=== PATIENT | female | born 1960 | race Caucasian/White ===

== ENCOUNTER 2018-04-23 06:06 | Day surgery (SDC) | payer MEDICAID, SELFPAY ==
[2018-04-23 06:30] VITALS: BP 125/84; PULSE 68; RESP 16; TEMP 36.9; O2SAT 97
[2018-04-23] MEDS: Lactated Ringers 1,000 ML 80 ML IV (06:51)
--- NOTE | 2018-04-23 07:03 | PDOC.DSDIS_ITS ---
Discharge Plan Discharge Details Reason For Visit: HX OF POLYPS Attending Provider: Tianna Yuan Primary Care Provider: Rosa Friedman Home Meds and New Rx's Prescriptions: No Action naproxen sodium [Aleve] 220 MG tablet 440 mg PO Q12H PRN RF: 0 cetirizine [Zyrtec] 10 MG tablet 10 mg PO DAILY RF: 0 compression socks, medium [Futuro Restoring Medium] 1 EACH misc 2 ea Miscellaneous DAILY Qty: 2 RF: 3 albuterol sulfate [ProAir HFA] 8.5 GM HFA aerosol inhaler 1 puff Inhalation q 4 hr prn Qty: 1 RF: 12 acetaminophen 500 MG tablet 1,000 PO TID PRNRF: 3 fluticasone [Flonase Allergy Relief] 9.9 ML spray,suspension 1 spray NS BID Qty: 1 RF: 0 bisacodyl [Bisa-Lax] 5 MG tablet,delayed release (DR/EC) 5 mg PO as directed Qty: 4 RF: 0 polyethylene glycol 3350 255 GM powder 255 gm PO as directed for colo Qty: 255 RF: 0 diazepam 10 MG tablet 10 mg PO ONCE Qty: 1 RF: 0 Discharge Instructions Instructions: Colonoscopy (DC) Additional Instructions: Findings: Follow up: Diet: New Medications: Please call if you develop: fevers >101.5 Nausea or Vomiting Abdominal pain that is not transient 1. Because there will be medication in your system for the next 24 hours, you may feel a little sleepy. Your coordination will be affected. Therefore: a. Do not drive or operate dangerous equipment for 24 hours. b. Do not drink alcohol beverages for 24 hours (not even beer). c. Plan to go home and rest for the day. 2. Generally there are no restrictions on your activity after a day or so has gone by, but you may feel a bit fatigued for a few days. 3 After you arrive home you may have a light meal and return to a normal diet as you can tolerate it without feeling sick to your stomach. 4. After surgery, you may feel pain or discomfort. This should be only transient , but if it persists please contact your doctor. 5. If there are any questions regarding the findings of your procedure, please feel free to contact your doctor. 6. If you are unable to contact your doctor with a problem, contact the [facility] at [phone]. 7. Continue all your regular medications unless directed otherwise. I understand the above instructions and have no questions. Signature of Patient or Responsible Adult Escort Date/Time Name of Responsible Adult Escort Signature of Nurse Date/Time Activity:: Activity as Tolerated Activity:: Activity as Tolerated Equipment/Supplies:: No Equipment Needed Diet:: As Tolerated
--- NOTE | 2018-04-23 07:50 | BOWEL_PTH ---
PATIENT: Natalie Hdz LOC: [facility] U#:[id number] AGE/SX: 57/F ROOM: RE04/23/[address]: Tianna Yuan MD : 1960 BED: DIS: 04/23/2018 SPEC #: [id number] RECD: 04/23/18 12:06 STATUS: JEANNE REKathryn #: [id number] MOISÉS: 04/23/18 07:[address]: Tianna Yuan DEPT: Surgical Specimen RECD BY: Lola Daley ENTERED: 04/23/18 12:07 SP TYPE: Bowel OTHR DR: Rosa Friedman APRN Tissues: 1 - BIOPSY BOWEL 2 - BIOPSY BOWEL Procedures: GROSS AND MICRO LEVEL 4 Comments: [id number]
--- NOTE | 2018-04-23 08:04 | PDOC.DSDIS_ITS ---
Discharge Plan Discharge Details Reason For Visit: HX OF POLYPS Attending Provider: Tianna Yuan Primary Care Provider: Rosa Friedman Home Meds and New Rx's Prescriptions: No Action naproxen sodium [Aleve] 220 MG tablet 440 mg PO Q12H PRN RF: 0 cetirizine [Zyrtec] 10 MG tablet 10 mg PO DAILY RF: 0 compression socks, medium [Futuro Restoring Medium] 1 EACH misc 2 ea Miscellaneous DAILY Qty: 2 RF: 3 albuterol sulfate [ProAir HFA] 8.5 GM HFA aerosol inhaler 1 puff Inhalation q 4 hr prn Qty: 1 RF: 12 acetaminophen 500 MG tablet 1,000 PO TID PRNRF: 3 fluticasone [Flonase Allergy Relief] 9.9 ML spray,suspension 1 spray NS BID Qty: 1 RF: 0 bisacodyl [Bisa-Lax] 5 MG tablet,delayed release (DR/EC) 5 mg PO as directed Qty: 4 RF: 0 polyethylene glycol 3350 255 GM powder 255 gm PO as directed for colo Qty: 255 RF: 0 diazepam 10 MG tablet 10 mg PO ONCE Qty: 1 RF: 0 Discharge Instructions Instructions: Colonoscopy (DC) Additional Instructions: Findings: 1. 2 polyps 2. mild diverticulosis Follow up: 3-5 years Diet: high fiber New Medications: none Please call if you develop: fevers >101.5 Nausea or Vomiting Abdominal pain that is not transient 1. Because there will be medication in your system for the next 24 hours, you may feel a little sleepy. Your coordination will be affected. Therefore: a. Do not drive or operate dangerous equipment for 24 hours. b. Do not drink alcohol beverages for 24 hours (not even beer). c. Plan to go home and rest for the day. 2. Generally there are no restrictions on your activity after a day or so has gone by, but you may feel a bit fatigued for a few days. 3 After you arrive home you may have a light meal and return to a normal diet as you can tolerate it without feeling sick to your stomach. 4. After surgery, you may feel pain or discomfort. This should be only transient , but if it persists please contact your doctor. 5. If there are any questions regarding the findings of your procedure, please feel free to contact your doctor. 6. If you are unable to contact your doctor with a problem, contact the [facility] at [phone]. 7. Continue all your regular medications unless directed otherwise. I understand the above instructions and have no questions. Signature of Patient or Responsible Adult Escort Date/Time Name of Responsible Adult Escort Signature of Nurse Date/Time Activity:: Activity as Tolerated Activity:: Activity as Tolerated Equipment/Supplies:: No Equipment Needed Diet:: As Tolerated
--- NOTE | 2018-04-23 08:04 | W.COLOREPORT ---
Date of service: 04/23/18 Time of Service: 08:00
[2018-04-23 08:30] VITALS: BP 134/49; PULSE 65; RESP 16; TEMP 36.2; O2SAT 97
--- NOTE | 2018-04-26 08:25 | W.COLOREPORT ---
Date of service: 04/23/18 Colonoscopy Report Date of procedure: 04/23/18 Pre-op diagnosis general: Hx of polyps Post-op diagnosis procedure note: other (mild diverticulosis and polyps) Procedure: Colonoscopy with polypectomy by cold forceps Surgeon: Tianna Yuan Anesthesia proc note operative: MAC (by Nader Forman CRNA) Estimated blood loss (mL): 3 Pathology: other (2 polyps) Complications: None Disposition: same day Indications: Ms. Hdz is a pleasant 57 year old female with a history of polyps. Her last colonoscopy was 5 years ago. Risks, benefits and complications have been reviewed. Complications include but are not limited to bleeding, pain, perforation, missed small lesion/polyp, sore throat, aspiration and adverse reaction to the medications. Questions were entertained and answered to their satisfaction and they wished to proceed. No guarantees were given or implied. Prep: Miralax Retraction Time: 20 minutes Findings: descending and rectal polyp Procedure Description: After informed consent was obtained patient was taken to the procedure room and placed in the left decubitous position. Monitors were applied and a timeout was done. The patient's name date of procedure type allergies to medications and metal in her body reviewed. The patient was then sedated and once sedated and comfortable a rectal exam was done. External exam was normal. Internal exam revealed normal sphincter tone and no palpable masses. The colonoscope was introduced and retroflexed. There were no internal hemorrhoids. The scope was straightened and advanced to the cecum without difficulty. The TI and the appendiceal orifice were identified. Prep was adequate. The scope was retracted over 20 minutes back to the rectum. 2 polyps were removed with cold forceps The patient tolerated the proceedure well. She was woken up and taken back to same day surgery in stable condition.
== END 2018-04-23 09:00 | disposition home or self-care (01) ==
LOC: SUR 06:08
PROVIDERS: PCP Nurse Practitioner; Visit Provider Surgery
PROC: 0DJD8ZZ Inspection of Lower Intestinal Tract, Via Natural or Artificial Opening Endoscopic (ICD-10-PCS; CPT 45378; principal; 2018-04-23 07:30)
DX: Z12.11 Encounter for screening for malignant neoplasm of colon (principal); Z86.010 Personal history of colon polyps; K57.30 Diverticulosis of large intestine without perforation or abscess without bleeding; K63.5 Polyp of colon; K62.1 Rectal polyp
CPT/HCPCS: 45380; 88305

== ENCOUNTER 2018-05-13 00:38 | Emergency (ER) | payer MEDICAID, SELFPAY ==
[2018-05-13 00:43] VITALS: BP 150/92; PULSE 81; RESP 16; TEMP 36.6; O2SAT 98
--- NOTE | 2018-05-13 01:24 | DI.RAD_ITS ---
SYMPTOMS/DIAGNOSIS: S/P FALL ONTO RT HAND AND WRIST, ? ACUTE FRACTURE RIGHT HAND: Three views. There is a nondisplaced intra-articular fracture of the medial aspect of the base of the proximal phalanx of the right little finger. No other fracture or dislocation is seen. No radiopaque foreign bodies are seen in the soft tissues. Mild degenerative changes are seen of the hand and wrist. IMPRESSION: Nondisplaced intra-articular fracture through the base of the proximal phalanx of the right little finger. RIGHT WRIST: Three views. No acute fracture or dislocation is seen. No radiopaque foreign bodies are seen in the soft tissues. IMPRESSION: No acute abnormality.
--- NOTE | 2018-05-13 01:26 | W.ED.GENAD ---
Discharge Plan Disposition Patient Disposition: HOME Condition: Stable Discharge Details Chief Complaint: Trauma Clinical Impression: Fracture of finger of right hand, Contusion of face, Abrasion of knee, bilateral Primary Care Provider: Rosa Friedman ED Provider: Michelle Alvarenga Home Meds and New Rx's Prescriptions: Continue naproxen sodium [Aleve] 220 MG tablet 440 mg PO Q12H PRN RF: 0 cetirizine [Zyrtec] 10 MG tablet 10 mg PO DAILY RF: 0 compression socks, medium [Futuro Restoring Medium] 1 EACH misc 2 ea Miscellaneous DAILY Qty: 2 RF: 3 albuterol sulfate [ProAir HFA] 8.5 GM HFA aerosol inhaler 1 puff Inhalation q 4 hr prn Qty: 1 RF: 12 acetaminophen 500 MG tablet 1,000 PO TID PRNRF: 3 fluticasone [Flonase Allergy Relief] 9.9 ML spray,suspension 1 spray NS BID Qty: 1 RF: 0 diazepam 10 MG tablet 10 mg PO ONCE Qty: 1 RF: 0 Discharge Instructions Instructions: Finger Fracture (ED), Head Injury (ED), Contusion in Adults (ED) Additional Instructions: Rest, ice, elevate right hand as much as possible. Alternate Tylenol and Motrin as needed and directed for pain. You should receive a call from the orthopedics regarding plan for follow-up. Return immediately to the emergency department with any worsening or new concerning symptoms. Stand Alone Forms: Work Release Referrals: Ozzie Raza MD [ [facility] STAFF PHYSICIAN] - ([phone]) Discharge Data Discharge Physician: Michelle Alvarenga Medical Decision Making 57yo F who presents with R hand and wrist pain, b/l knee abrasions, and head injury after mechanical fall from standing height. No LOC, vomiting, and denies headache. Small hematoma noted to right forehead but no periorbital edema or entrapment. Mainly c/o pain in R hand and wrist. No C/T/L spine tenderness. Abd soft, nontender. No pelvic instability. She has some mild tenderness to R lateral ribcage but has had rib fractures in past and states I did not break a rib and is declining cxr/rib xray at this time. I do not see any indication for CT head due to mechanism and lack of concerning associated symptoms and pt is agreeable and would rather not have CT head at this time. Will give dose motrin and send for R hand and wrist xrays. 0200 --x-rays note R 5th proximal phalanx fracture. Right wrist x-ray negative. Patient did have mild right snuffbox tenderness which has improved on reevaluation after motrin. With her fifth proximal phalanx fracture, patient would benefit from an ulnar splint more than a volar splint which would cover for a possible but unlikely scaphoid fracture. Will place patient on orthopedic list for follow-up and for repeat wrist x-rays to rule out scaphoid fracture when reevaluated if indicated. Patient offered narcotic pain medication for home but declines. HPI General Mode of arrival: ambulatory. Date/Time Provider Initiated Documentation: 05/13/18 00:39. Limitations to Documentation: no limitations. Information obtained by: patient. HPI Narrative: 57yo F who presents to the ED w/ a c/o PMH: Asthma, Hep C, Arachnoid brain tumor Surgical history: Endometrial ablation, D & C, Hysterectomy, Cardiac valve repair x 2, Craniotomy with brain tumor resection, Trigger finger repair Social history: Former tobacco smoker, Occasional ETOH, denies drugs Meds: Albuterol, Valium, Flonase, Valium Allergies: Codeine (nausea) Related Data Home Medications Medication Instructions Recorded Confirmed naproxen sodium [Aleve] 440 mg PO Q12H PRN tab-cap 09/18/16 05/13/18 cetirizine [Zyrtec] 10 mg PO DAILY tab-cap 10/23/16 05/13/18 albuterol sulfate [ProAir HFA] 1 puff INHALATION q 4 hr prn #1 05/02/17 05/13/18 inhaler compression socks, medium [Futuro #2 pa 05/02/17 Restoring Medium] acetaminophen 1,000 PO TID PRN tab 07/03/17 fluticasone [Flonase Allergy 1 spray NS BID #1 bottle 10/29/17 05/13/18 Relief] diazepam 10 mg PO ONCE #1 tab-cap 04/08/18 05/13/18 Previous Rx's Medication Instructions Recorded albuterol sulfate [ProAir HFA] 1 puff INHALATION q 4 hr prn #1 05/02/17 inhaler compression socks, medium [Futuro #2 pa 05/02/17 Restoring Medium] fluticasone [Flonase Allergy 1 spray NS BID #1 bottle 10/29/17 Relief] diazepam 10 mg PO ONCE #1 tab-cap 04/08/18 Allergies Allergy/AdvReac Type Severity Reaction Status Date / Time Bleach (Sodium Hypochlorite) Allergy Severe takes her Unverified 05/13/18 00:47 breath away, asthma attack latex Allergy Severe 2 degree Unverified 05/13/18 00:47 russo raspberry Allergy Severe hives Unverified 05/13/18 00:47 aluminum Allergy Unknown Facial Unverified 05/13/18 00:47 Swelling and Blisters lactose AdvReac Severe diarrhea,bl Unverified 05/13/18 00:47 oating,vomi ting codeine AdvReac Vomiting Unverified 05/13/18 00:47 General Stated Complaint: Trauma SHAR: 3 Review of Systems Review of Systems All systems reviewed & are unremarkable except as noted in HPI and below Constitutional Denies chills, Denies excessive sweating, Denies fatigue, Denies fever(s), Denies weakness and Denies weight loss Eyes Reports system reviewed and no additional complaints, except as docu and Denies blurry vision ENT Denies vertigo, Denies dizziness, Denies otalgia, Denies nasal congestion, Denies sore throat and Denies throat swelling Cardiovascular Denies chest pain, Denies syncope, Denies rapid heart rate and Denies dyspnea Respiratory Denies dyspnea Gastrointestinal Denies abdominal pain, Denies diarrhea and Denies vomiting Genitourinary Denies hematuria, Denies dysuria and Denies flank pain Musculoskeletal Denies back pain and Reports other (R hand and wrist injury) Integumentary/Breasts Denies lesions and Denies rash Neurologic Denies behavioral changes, Denies confusion, Denies vertigo, Denies dizziness, Denies syncope and Denies weakness Psychiatric Denies behavioral changes, Denies confusion and Denies depression Endocrine Denies excessive sweating and Denies fatigue Hematologic/Lymphatic Denies easy bruising and Denies lymphadenopathy Allergic/Immunologic Denies throat swelling PFSH Family History Father Heart disease Hyperlipidemia Myocardial infarction Brother Diabetes Grandmother Personal history of malignant neoplasm Maternal Uncle Personal history of malignant neoplasm Maternal Aunt Cerebrovascular accident Medical History Normal colonoscopy (Acute ~03/2018) Arachnoid cyst Asthma Hepatitis C Valvular heart disease Social History Smoking/Tobacco Use Status: Former Tobacco Use Surgical History Colonoscopy - MAC D&C with Hysteroscopy (~1995) Endometrial Ablation Trigger Finger release cardiac valve repair x2 rgt retrosigmoid suboccipital craniotomy resection (03/20/17) Exam Const General: cooperative and healthy appearing Orientation: alert and awake HENMT Head: normal to inspection, no palpable skull fracture, normocephalic, no abrasions, no Willoughby's sign and hematoma (3x3cm mild R forehead) Ears: hearing grossly normal bilaterally, external ears normal and TM's normal bilaterally General nose exam: external nose normal Face and sinus: normal facial exam Mouth: oral mucosae normal Teeth and gingiva: dentition normal Throat: posterior oropharynx normal Eyes General: appearance normal, both eyes and all related structures Periorbital: periorbital findings normal Eyelids: eyelids normal Pupils: PERRL EOM: EOM intact bilaterally Other: no periorbital edema, ecchymoses or lacerations Neck Neck: normal visual inspection, trachea midline, supple and no anterior neck swelling Lymphatic: no lymphadenopathy noted Chest Chest: normal inspection of the chest and tenderness (mild tenderness to palpation of R lateral chest wall w/o ecchymoses, edema, abrasions, lacerations) Resp Effort & Inspection: normal respiratory effort and able to speak in complete sentences Auscultation: clear to auscultation bilaterally Cardio Rate: regular rate Rhythm: regular rhythm GI Inspection: normal to inspection and other (No evidence of trauma) Palpation: soft, not firm, no guarding, no hepatosplenomegaly, no masses and nontender Auscultation: normal bowel sounds Back/Spine/Pelvis Back: no CVA tenderness Cervical Spine: No cervical spinal tenderness Thoracic/Lumbar Spine: No thoracic spinal tenderness and No lumbar spinal tenderness Pelvis: no pain with anterior-posterior compression Skin General skin exam: no rashes or lesions noted Neuro General: alert, awake and oriented x3 Cognition: normal cognition Speech: speech normal Gait: normal gait Motor: muscle tone normal throughout Sensory Exam: no sensory deficits noted Extrem Right upper extremity: wrist (Mild right snuffbox tenderness. Tenderness to palpation along the dorsal and volar wrist, mostly on ulnar aspect. No deformity. Right radial and ulnar pulse intact.) and hand Other: Superficial abrasions noted to bilateral anterior knees but no deformity tenderness or pain with range of motion. Normal right shoulder, right elbow, left upper extremity and bilateral lower extremity exams. Psych Appearance: grossly normal Mental Status: mental status grossly normal Speech and Movement: speech and movement normal Affect: normal affect Thought Process: normal Course Vital Signs Temperature 97.9 F 05/13/18 00:43 Pulse 81 05/13/18 00:43 Respiratory Rate 16 05/13/18 00:43 Blood Pressure 150/92 H 05/13/18 00:43 Pulse Oximetry 98 05/13/18 00:43 Temperature 97.9 F 05/13/18 00:43 Temperature Source Temporal Artery Scan 05/13/18 00:43 Pulse 81 05/13/18 00:43 Respiratory Rate 16 05/13/18 00:43 Respiratory Effort Non-Labored 05/13/18 00:48 Respiratory Depth Normal 05/13/18 00:48 Blood Pressure 150/92 H 05/13/18 00:43 Blood Pressure Position Sitting 05/13/18 00:43 Pulse Oximetry 98 05/13/18 00:43 Oxygen Delivery Method Room Air 05/13/18 00:43 Oxygen Flow Rate 0 05/13/18 00:43 Pain Level 6 05/13/18 00:48
--- NOTE | 2018-05-13 01:59 | DI.VRAD_ITS ---
EXAM: XR Right Hand Complete, 3 or More Views CLINICAL HISTORY: 57 years old, female; Injury or trauma; Fall; Initial encounter; Blunt trauma (contusions or hematomas; Hand; Right TECHNIQUE: Frontal, lateral and oblique views of the right hand. COMPARISON: No relevant prior studies available. FINDINGS: Bones/joints: Scattered mild degenerative changes. Nondisplaced fracture proximal metaphysis proximal fifth phalanx. No dislocation. Soft tissues: Unremarkable. No radiopaque foreign body. IMPRESSION: Proximal fifth phalanx fracture. Dictated and Authenticated by: Dann Ames MD. Ordering:AKHIL REMY MD
--- NOTE | 2018-05-13 02:00 | DI.VRAD_ITS ---
EXAM: XR Right Wrist Complete, 3 or More Views CLINICAL HISTORY: 57 years old, female; Injury or trauma; Fall; Initial encounter; Blunt trauma (contusions or hematomas; Wrist; Right TECHNIQUE: Frontal, lateral and oblique views of the right wrist. COMPARISON: No relevant prior studies available. FINDINGS: Bones/joints: Scattered mild degenerative changes. No acute fracture. No dislocation. Soft tissues: Unremarkable. No radiopaque foreign body. IMPRESSION: No acute findings. Dictated and Authenticated by: Dann Ames MD. Ordering:AKHIL REMY MD
[2018-05-13 02:40] VITALS: BP 148/88; PULSE 80; RESP 16; O2SAT 98
== END 2018-05-13 02:36 | disposition home or self-care (01) ==
LOC: ER 02:37
PROVIDERS: Emergency Provider Physician Assistant; PCP Nurse Practitioner
DX: S62.616A Displaced fracture of proximal phalanx of right little finger, initial encounter for closed fracture (principal); S80.211A Abrasion, right knee, initial encounter; S80.212A Abrasion, left knee, initial encounter; S00.83XA Contusion of other part of head, initial encounter; W01.198A Fall on same level from slipping, tripping and stumbling with subsequent striking against other object, initial encounter
CPT/HCPCS: 26720; 99284; 73110; 73130; 99281; L3809

== ENCOUNTER 2018-05-27 10:06 | Outpatient (CLI) | payer MEDICAID, SELFPAY ==
--- NOTE | 2018-05-27 09:55 | DI.RAD_ITS ---
SYMPTOM/DIAGNOSIS: F/U FX RIGHT HAND: Three views. Comparison is made with 05/13/18. There has been no change in alignment of the fracture involving the proximal metaphysis of the proximal phalanx of the right fifth finger. No other fractures or dislocations are seen. IMPRESSION: Stable fracture of the proximal phalanx of the right fifth finger.
== END 2018-05-27 10:26 ==
PROVIDERS: PCP Nurse Practitioner; Visit Provider Student in an Organized Health Care Education/Training Program
DX: S62.616D Displaced fracture of proximal phalanx of right little finger, subsequent encounter for fracture with routine healing (principal)
CPT/HCPCS: 73130

== ENCOUNTER 2018-06-17 13:48 | Outpatient (CLI) | payer MEDICAID, SELFPAY ==
--- NOTE | 2018-06-17 13:46 | DI.RAD_ITS ---
SYMPTOM/DIAGNOSIS: F/U FX RIGHT LITTLE FINGER: Three views. Comparison is made with 05/27/18. There has been no change in alignment of the fracture involving the proximal phalanx of the right little finger.
== END 2018-06-17 14:08 ==
PROVIDERS: PCP Nurse Practitioner; Visit Provider Student in an Organized Health Care Education/Training Program
DX: S62.616D Displaced fracture of proximal phalanx of right little finger, subsequent encounter for fracture with routine healing (principal)
CPT/HCPCS: 73140

== ENCOUNTER 2018-12-14 01:21 | Outpatient (CLI) | payer OTHER, SELFPAY ==
[2018-12-14 10:20] LABS: HCT 39.8 % (36.0-46.0); Mean Corp. HGB Concentration 32.7 g/dL (32.0-36.0); Mean Corpuscular Hemoglobin 30.3 pg (27.0-33.0); Mean Corpuscular Volume 92.8 fL (80-95); Mean Platelet Volume 10.6 fL (8.0-11.0); Platelet Count 252 x1000/uL (130-400); RBC 4.29 m/cumm (4.00-5.20); RBC Distribution Width 14.4 % (11.7-14.6); White Blood Cell Count 5.68 k/cumm (4.4-10.8)
[2018-12-14 10:30] LABS: Hemoglobin A1C 5.8 % (4.5-6.2)
[2018-12-14 11:22] LABS: ALT 19 U/L (12-78); AST 11 U/L (15-37); Albumin 3.5 g/dL (3.4-5.0); Alkaline Phosphatase 78 U/L (46-116); Anion Gap 9.3 mmol/L (3-11); BUN 15 mg/dL (7-18); Bilirubin, Total 0.9 mg/dL (0.2-1.0); CO2 26.7 mmol/L (21.0-32.0); CREATININE 0.67 mg/dL (0.55-1.02); Calcium 8.8 mg/dL (8.5-10.1); Chloride 106 mmol/L (98-107); Cholesterol 183 mg/dL (50-200); Glucose 90 mg/dL (70-100); HDL Cholesterol 88 mg/dL (40-60); LDL CHOLESTEROL 80 mg/dL (<100); Potassium 4.1 mmol/L (3.5-5.1); Sodium 142 mmol/L (136-145); TSH (W/Ref FT4) 1.52 uIU/mL (0.358-3.74); Total Protein 6.8 g/dL (6.4-8.2)
[2018-12-14 11:47] LABS: Triglyceride < 25 mg/dL (30-150)
== END 2018-12-14 01:41 ==
PROVIDERS: PCP Nurse Practitioner; Visit Provider Nurse Practitioner
DX: E03.9 Hypothyroidism, unspecified (principal); R42 Dizziness and giddiness; G93.0 Cerebral cysts; E11.9 Type 2 diabetes mellitus without complications; E66.3 Overweight; Z00.00 Encounter for general adult medical examination without abnormal findings
CPT/HCPCS: 36415; 80053; 80061; 83721; 85027; 83036; 84443

== ENCOUNTER 2018-12-16 01:23 | Outpatient (CLI) | payer OTHER, SELFPAY ==
--- NOTE | 2018-12-16 07:09 | DI.RAD_ITS ---
SYMPTOM/DIAGNOSIS: LT SHOULDER PAIN, M25.512 LEFT SHOULDER: Five views. No acute or healing fracture or dislocation is seen. Mild degenerative changes are seen at the acromioclavicular joint and the greater tuberosity. The glenohumeral joint appears well maintained. The bones appear osteopenic. The soft tissues are unremarkable. IMPRESSION: Mild degenerative changes of the left shoulder.
--- NOTE | 2018-12-16 16:30 | DI.MAMMO_ITS ---
SYMPTOM/DIAGNOSIS: SCREENING, Z12.31, FAMILY HISTORY MAMMOGRAM: Mammograms were interpreted according to the usual protocol including computer analysis with CAD system, tomosynthesis and C view imaging. Comparison with prior examinations. Breast density B. No suspicious masses or microcalcifications are seen. There is no definite evidence of malignancy. IMPRESSION: Negative mammogram. Routine screening is recommended. Category I. MQSA ASSESSMENT OF FINDINGS: Negative. Category 1. Patient will receive a letter notifying them of these results. BI-RADS category B. There are scattered areas of fibroglandular density.
== END 2018-12-16 01:43 ==
PROVIDERS: PCP Nurse Practitioner; Visit Provider Nurse Practitioner
DX: Z12.31 Encounter for screening mammogram for malignant neoplasm of breast (principal); Z80.3 Family history of malignant neoplasm of breast; M25.512 Pain in left shoulder; M19.012 Primary osteoarthritis, left shoulder
CPT/HCPCS: 77063; 77067; 73030

== ENCOUNTER 2019-09-17 16:15 | Outpatient (CLI) | payer OTHER, SELFPAY ==
[2019-09-17 18:05] LABS: TSH (W/Ref FT4) 2.53 uIU/mL (0.36-3.74)
== END 2019-09-17 16:35 ==
PROVIDERS: PCP Nurse Practitioner; Visit Provider Nurse Practitioner
DX: E03.9 Hypothyroidism, unspecified (principal)
CPT/HCPCS: 36415; 84443

== ENCOUNTER 2020-08-31 00:48 | Outpatient (CLI) | payer BC, SELFPAY ==
--- NOTE | 2020-08-31 09:15 | DI.MAMMO_ITS ---
EXAM: MG MAMMO SCREENING CLINICAL HISTORY: screening,Z12.39. TECHNIQUE: Bilateral full field digital CC and MLO mammographic images were obtained with 3D tomosyn thesis and utilizing computer aided detection (CAD). COMPARISON: Prior mammograms dating back to 2016, the most recent being November 2018. Significant fam wendy history. Her sister was diagnosed with breast cancer at age 42.. FINDINGS: There are no spiculated masses nor malignant appearing microcalcification groups. There is no signif icant architectural distortion nor skin thickening-retraction. IMPRESSION: No radiographic evidence of malignancy. BI-RADS Category 1 - Negative Breast Density - Category B - Scattered areas of fibroglandular density Breast density Category C or D implies that the patient has dense breast tissue. Dense breast tissue can make it harder to find cancer on a mammogram. Dense breast tissue is also associated with an incr eased risk of breast cancer. This information about the result of the mammogram report was provided to the patient to raise their awareness. Use this report when you speak with the patient about their risks for breast cancer, which includes their family history. At that time, you may recommend additional screening tests (Ultrasoun d or MRI) as these tests may add significant information. A negative radiographic report should not delay biopsy if a dominant or clinically suspicious mass is present. Up to ten percent of cancers are not identified on mammography. A negative report may reinforce clinical impression. Adenosis and dense breasts may obscure an underlying neoplasm. False positive reports average 6 to 10%. Patient will receive a letter notifying them of these results.
== END 2020-08-31 01:08 ==
PROVIDERS: PCP Nurse Practitioner; Visit Provider Nurse Practitioner
DX: Z12.31 Encounter for screening mammogram for malignant neoplasm of breast (principal); Z80.3 Family history of malignant neoplasm of breast
CPT/HCPCS: 77063; 77067

== ENCOUNTER 2020-08-31 02:27 | Outpatient (CLI) | payer BC, SELFPAY ==
[2020-08-31 16:56] LABS: HCT 39.5 % (36.0-46.0); MCH 29.9 pg (27.0-33.0); MCHC 32.9 % (32.0-36.0); MCV 90.8 fL (80-95); MPV 10.1 fL (8.0-11.0); Platelet Count 275 10^3/uL (130-400); RBC 4.35 10^6/uL (3.93-5.22); RDW 13.7 % (11.7-14.6); WBC 8.32 10^3/uL (4.4-10.8)
[2020-08-31 17:58] LABS: ALT 29 U/L (14-59); AST 15 U/L (15-37); Alkaline Phosphatase 77 U/L (46-116); Anion Gap 9.3 mmol/L (3-11); BUN 15 mg/dL (7-18); Bilirubin, Total 0.8 mg/dL (0.2-1.0); CO2 28.7 mmol/L (21.0-32.0); Calcium 9.6 mg/dL (8.5-10.1); Calculated LDL 99 mg/dL (<100); Chloride 103 mmol/L (98-107); Cholesterol 193 mg/dL (<200); Estimated GFR 56.95 (mL/min/1.73m2); Glucose 108 mg/dL (74-106); HDL Cholesterol 82 mg/dL (40-60); Potassium 3.8 mmol/L (3.5-5.1); Sodium 141 mmol/L (136-145); TSH (W/Ref FT4) 3.35 uIU/mL (0.36-3.74); Total Protein 7.3 g/dL (6.4-8.2); Triglyceride 60 mg/dL (<150)
== END 2020-08-31 02:47 ==
PROVIDERS: PCP Nurse Practitioner; Visit Provider Nurse Practitioner
DX: E03.9 Hypothyroidism, unspecified (principal); I10 Essential (primary) hypertension; J45.909 Unspecified asthma, uncomplicated
CPT/HCPCS: 36415; 80053; 80061; 85027; 84443

== ENCOUNTER 2020-11-19 14:37 | Outpatient (REF) | payer BC, SELFPAY ==
[2020-11-21 16:44] LABS: COVID-19 RT-PCR UVMMC Result Positive (Negative)
== END 2020-11-19 14:38 | disposition home or self-care (01) ==
LOC: LBN 14:37
PROVIDERS: PCP Nurse Practitioner; Visit Provider Student in an Organized Health Care Education/Training Program
DX: Z20.822 Contact with and (suspected) exposure to COVID-19 (principal)
CPT/HCPCS: U0003

== ENCOUNTER 2021-01-27 14:59 | Outpatient (REF) | payer BC, SELFPAY ==
--- NOTE | 2021-01-27 09:00 | PAPFT_PTH ---
PATIENT: Natalie Hdz LOC: [facility] U#:[id number] AGE/SX: 60/F ROOM: RE01/27/[address]: Rosa Friedman APRN : 1960 BED: DIS: 01/27/2021 SPEC #: [id number] RECD: 01/27/21 17:55 STATUS: JEANNE SPAIN #: [id number] MOISÉS: 01/27/21 09:[address]: Rosa Friedman DEPT: [facility] Cytology RECD BY: Lola Daley Tissues: 1 - CX/ENDOCX FOR PAP SMEARS Procedures: PAP THIN PREP/UVM Screening HPV DNA PROBE Comments: [id number]
== END 2021-01-27 15:00 | disposition home or self-care (01) ==
LOC: LBN 14:59
PROVIDERS: PCP Nurse Practitioner; Visit Provider Nurse Practitioner
DX: Z12.4 Encounter for screening for malignant neoplasm of cervix (principal); Z11.51 Encounter for screening for human papillomavirus (HPV)
CPT/HCPCS: 88142; 87624

== ENCOUNTER 2021-04-07 02:58 | Outpatient (CLI) | payer BC, SELFPAY ==
[2021-04-07 11:32] LABS: TSH (W/Ref FT4) 1.59 uIU/mL (0.36-3.74)
== END 2021-04-07 02:59 | disposition home or self-care (01) ==
LOC: LBO 02:58
PROVIDERS: PCP Nurse Practitioner; Visit Provider Nurse Practitioner
DX: R53.83 Other fatigue (principal); L65.9 Nonscarring hair loss, unspecified
CPT/HCPCS: 36415; 84443

== ENCOUNTER → 2022-02-02 02:24 | Outpatient (CLI) | payer BC, SELFPAY ==
--- NOTE | 2022-02-02 08:57 | DI.MAMMO_ITS ---
Exam(s) MAMMO SCREENING EXAM: MAMMO SCREENING CLINICAL HISTORY: screening,z12.39. TECHNIQUE: Bilateral full field digital CC and MLO mammographic images were obtained with 3D tomosyn thesis and utilizing computer aided detection (CAD). COMPARISON: Prior mammograms were reviewed, the most recent being August 2020. FINDINGS: There has been no significant change in the appearance and distribution of the fibroglandular tissue. There are no CAD designations. There are no new spiculated masses nor malignant appearing microcalcification groups. There is no significant architectural distortion nor skin thickening-retraction. IMPRESSION: No radiographic evidence of malignancy. BI-RADS Category 1 - Negative Breast Density - Category B - Scattered areas of fibroglandular density Breast density Category C or D implies that the patient has dense breast tissue. Dense breast tissue can make it harder to find cancer on a mammogram. Dense breast tissue is also associated with an incr eased risk of breast cancer. This information about the result of the mammogram report was provided to the patient to raise their awareness. Use this report when you speak with the patient about their risks for breast cancer, which includes their family history. At that time, you may recommend additional screening tests (Ultrasoun d or MRI) as these tests may add significant information. A negative radiographic report should not delay biopsy if a dominant or clinically suspicious mass is present. Up to ten percent of cancers are not identified on mammography. A negative report may reinforce clinical impression. Adenosis and dense breasts may obscure an underlying neoplasm. False positive reports average 6 to 10%. Patient will receive a letter notifying them of these results.
== END ==
PROVIDERS: PCP Nurse Practitioner; Visit Provider Nurse Practitioner
DX: Z12.31 Encounter for screening mammogram for malignant neoplasm of breast (principal)
CPT/HCPCS: 77063; 77067

== ENCOUNTER 2022-02-08 02:04 | Outpatient (CLI) | payer BC, SELFPAY ==
[2022-02-08 09:31] LABS: ALT 23 U/L (14-59); AST 15 U/L (15-37); Albumin 3.6 g/dL (3.4-5.0); Alkaline Phosphatase 75 U/L (46-116); Anion Gap 7.3 mmol/L (3-11); BUN 18 mg/dL (7-18); Bilirubin, Total 0.7 mg/dL (0.2-1.0); CO2 29.7 mmol/L (21.0-32.0); CREATININE 0.8 mg/dL (0.55-1.02); Calcium 8.6 mg/dL (8.5-10.1); Calculated LDL 89 mg/dL (<100); Chloride 106 mmol/L (98-107); Cholesterol 184 mg/dL (<200); Glucose 99 mg/dL (74-106); HDL Cholesterol 85 mg/dL (40-60); Potassium 4.1 mmol/L (3.5-5.1); Sodium 143 mmol/L (136-145); TSH (W/Ref FT4) 2.05 uIU/mL (0.36-3.74); Total Protein 7.4 g/dL (6.4-8.2); Triglyceride 51 mg/dL (<150)
== END 2022-02-08 02:05 | disposition home or self-care (01) ==
LOC: LBO 02:04
PROVIDERS: PCP Nurse Practitioner; Visit Provider Nurse Practitioner
DX: I10 Essential (primary) hypertension (principal); R63.5 Abnormal weight gain; R53.83 Other fatigue
CPT/HCPCS: 36415; 80053; 80061; 84443

== ENCOUNTER 2023-02-05 01:22 | Outpatient (CLI) | payer BC, SELFPAY ==
--- NOTE | 2023-02-05 08:45 | DI.MAMMO_ITS ---
Exam(s) MAMMO SCREENING EXAM: MAMMO SCREENING CLINICAL HISTORY: screening, Z12.39 TECHNIQUE: Mammograms were interpreted according to the usual protocol including computer analysis w Rev[employer] CAD system, tomosynthesis and C-view imaging. COMPARISON: 2016 through 2021 FINDINGS: The breasts are composed of mainly fatty density , Breast Density category A. No suspicious masses or suspicious microcalcifications are seen. No skin thickening or abnormal axillary lymph nodes are seen. There has been no significant change from prior exams. IMPRESSION: BI-RADS Category 1, Negative mammogram Yearly screening mammography is recommended. Breast Density - Category A, fatty density. A negative radiographic report should not delay biopsy if a dominant or clinically suspicious mass is present. Up to ten percent of cancers are not identified on mammography. A negative report may reinforce clinical impression. Adenosis and dense breasts may obscure an underlying neoplasm. False positive reports average 6 to 10%. Patient will receive a letter notifying them of these results.
== END 2023-02-05 01:42 ==
LOC: DI 01:23
PROVIDERS: PCP Nurse Practitioner; Visit Provider Nurse Practitioner
DX: Z12.31 Encounter for screening mammogram for malignant neoplasm of breast (principal)
CPT/HCPCS: 77063; 77067

== ENCOUNTER 2023-05-14 09:06 | Day surgery (SDC) | payer BC, SELFPAY ==
--- NOTE | 2023-05-13 20:59 | PDOC.DSDIS_ITS ---
Date of service: 05/14/23 Time of Service: 11:56 Discharge Plan Disposition Patient Disposition: Home Condition: Good Discharge Details Reason For Visit: Screening colonoscopy Attending Provider: Jairo Mohr Primary Care Provider: Rosa Friedman Home Meds and New Rx's Prescriptions: Continued famotidine [Pepcid] 20 mg tablet 20 mg PO DAILY PRN albuterol sulfate [ProAir HFA] 90 mcg/actuation HFA aerosol inhaler 1 puff Inhalation q 4 hr prn Qty: 1 12RF naproxen sodium [Aleve] 220 MG tablet 440 mg PO Q12H PRN Rx Instructions: 03/24/15 pt takes b/c of R leg pain, RH cetirizine [Zyrtec] 10 MG tablet 10 mg PO DAILY acetaminophen 500 MG tablet 1,000 mg PO TID PRN omeprazole 40 mg capsule,delayed release(DR/EC) See Rx Instructions .ROUTE .COMPLEX Qty: 90 3RF Dose Instruction: TAKE ONE CAPSULE BY MOUTH EVERY DAY. Rx Instructions: TAKE ONE CAPSULE BY MOUTH EVERY DAY. fluticasone propionate 50 mcg/actuation spray,suspension 2 spray intranasal DAILY PRN Rx Instructions: administer into each nostril Discontinued bisacodyl [Dulcolax (bisacodyl)] 5 mg tablet,delayed release (DR/EC) 5 mg PO ONCE Qty: 4 0RF polyethylene glycol 3350 17 gram/dose powder 17 g PO DAILY Qty: 238 0RF Discharge Instructions Instructions: Diverticulosis (GEN), Diverticulosis Diet (GEN) Additional Instructions: [place], hopefully your colonoscopy was comfortable for you today. As you may or may not recall, everything went very smoothly. You do have a little bit of diverticulosis, otherwise, your colonoscopy was totally negative. If you have any questions at all, please do not hesitate to contact me at any point. 1. If tolerated, consume a soft, low fiber diet for 1-2 days. [address] Do not drive, drink alcohol, operate machinery, make critical decisions, or do activities that require coordination or balance for 24 hours. 3. Because air was put into your colon during the procedure, expelling air from your rectum (passing gas or farting) is normal. 4. You may not have a bowel movement for 1-3 days because of the colonoscopy prep. This is normal. 5. Go directly to the emergency room if you notice any of the following: Develop chills (warm to touch), or if you have a thermometer and your temperature is above 101 Difficulty breathing or difficultly swallowing Persistent vomiting Severe abdominal pain, other than gas cramps Severe chest pain Black, tarry stools Any bleeding ? exceeding one tablespoon 6. Call your physician if the site where your intravenous was started becomes red, swollen, painful, and warm to touch. 7. Your physician has reviewed your pre-procedure medications. Please continue to take those medications as previously ordered. You will be given specific i nformation/education regarding any changes to your medications before leaving. Activity:: Activity as Tolerated Diet:: As Tolerated Discharge Orders Discharge Orders: Discharge Order (Routine); Ordered 05/13/23 Ordered By: Jairo Mohr DS: Diagnosis Discharge Diagnosis (1) Screen for colon cancer: Status: Acute Asessment and Plan: Diverticulosis; otherwise negative screening colonoscopy.
--- NOTE | 2023-05-13 21:00 | W.COLOREPORT ---
Date of service: 05/14/23 Time of Service: 11:58 Colonoscopy Report Date of procedure: 05/14/23 Pre-op diagnosis general: screening colonoscopy Post-op diagnosis procedure note: other (Diverticulosis) Procedure: Colonoscopy Surgeon: Jairo Mohr Anesthesia Type: General:No Airway Estimated blood loss (mL): 0 Pathology: none sent Complications: None Disposition: same day Indications: Natalie is a 62 year old woman who needs a screening colonoscopy Prep: Miralax/Dulcolax Procedure Start Time: 11:34 Procedure End Time: 11:50 Retraction Time: 11 Findings: Occasional sigmoid diverticulosis Procedure Description: Natalie was assisted to the lateral decubitus position. I began by performing an external anorectal exam.? Perineum and skin were normal, as was the anal verge.? There was no evidence of external hemorrhoids.? Next, I performed a digital rectal exam.? I did not appreciate any abnormal findings.? Next, I advanced a colonoscope into the rectal vault.? This appeared normal.? Using insufflation, I then advanced the colonoscope beyond the rectal folds and into the sigmoid colon before advancing towards the cecum.? The quality of the prep was excellent.? The scope was noted to be in the cecum by identification of the ileocecal valve and appendiceal orifice.? I then began withdrawing the colonoscope using repeated irrigation as necessary for full evaluation of the colonic mucosa. There were some occasional sigmoid diverticuli. Once the scope was withdrawn to the level of the rectum, great care was taken to examine portions of the rectal folds.? Finally, the scope was withdrawn and the patient was brought to the same-day surgery recovery unit as the anesthetic wore off. ?The findings and instructions were shared with the patient prior to discharge.
[2023-05-14 09:45] VITALS: BP 123/74; PULSE 70; RESP 19; TEMP 37; O2SAT 94
[2023-05-14] MEDS: Lactated Ringers 1,000 ML 80 ML IV (10:15)
--- NOTE | 2023-05-14 10:53 | ANES.PREOP_ITS ---
General Info Date of Service Date Performed: 05/14/23 Height: 5 ft 4 in Weight: 92.4 kg Body Mass Index (BMI): 34.9 Surgical Procedure: Operation Date: 05/14/23 10:35 Proposed Procedure Side Surgeon brenda Mohr MD Meds Allergies and Home Medications Allergies Allergy/AdvReac Type Severity Reaction Status Date / Time Bleach (Sodium Hypochlorite) Allergy Severe takes her Verified 05/14/23 10:23 breath away, asthma attack latex Allergy Severe 2 degree Verified 05/14/23 10:23 russo raspberry Allergy Severe hives Verified 05/14/23 10:23 aluminum Allergy Unknown Facial Verified 05/14/23 10:23 Swelling and Blisters lactose AdvReac Severe diarrhea,bl Verified 05/14/23 10:23 oating,vomi ting codeine AdvReac Vomiting Verified 05/14/23 10:23 pork AdvReac Unknown Uncoded 05/14/23 10:23 Home Medication Medication Instructions Recorded naproxen sodium 220 mg tablet 440 mg PO Q12H PRN 09/18/16 (Aleve) cetirizine 10 mg tablet (Zyrtec) 10 mg PO DAILY 10/23/16 acetaminophen 500 mg tablet 1,000 mg PO TID PRN 07/03/17 albuterol sulfate 90 mcg/actuation 1 puff inhalation q 4 hr prn ##1 02/06/23 aerosol inhaler (ProAir HFA) omeprazole 40 mg capsule,delayed See Rx Instructions .Route 03/05/23 release .COMPLEX #90 caps famotidine 20 mg tablet (Pepcid) 20 mg PO DAILY PRN 05/02/23 fluticasone propionate 50 2 spray intranasal DAILY PRN 05/11/23 mcg/actuation nasal spray,suspension Current Visit Medications: Current Medications Generic Name Dose Route Start Last Admin Trade Name Freq PRN Reason Stop Dose Admin Hyoscyamine Sulfate 0.125 mg 05/13/23 21:02 Hyoscyamine 0.125 Mg Sl/Oral/Chew SL 06/12/23 21:01 DIRECTED PRN Ringer's Solution 1,000 mls @ 80 mls/hr 05/14/23 06:00 05/14/23 10:15 IV 06/10/23 23:59 80 mls/hr INFUSION NATALIE Administration IV Miscellaneous Supplies 1 each 05/14/23 06:00 Iv Access IV 06/10/23 23:59 DIRECTED NATALIE Ondansetron HCl 4 mg 05/13/23 21:02 Ondansetron 4 Mg/2 Ml Vial IVP 06/12/23 21:01 Q4H PRN PRN Nausea / Vomiting Sodium Chloride 0 ml 05/14/23 06:00 Normal Saline Flush 10 Ml Syr IV 06/10/23 23:59 PRN PRN Sodium Chloride 0 ml 05/14/23 06:00 Normal Saline 10 Ml Vial IJ 06/10/23 23:59 DIRECTED PRN Sterile Water 0 ml 05/14/23 06:00 Water,Injection,Sterile 10 Ml Vial IJ 06/10/23 23:59 DIRECTED PRN PFSH Active Problems Active Problems: Problem Status Onset Code Screen for colon cancer Z12.11 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 08/29/16 D18.01 Hepatitis C carrier 08/29/16 B18.2 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 B97.7 Hypothyroidism 08/29/16 E03.9 Neoplasm of uncertain behavior of skin 08/29/16 D48.5 Varicose vein of leg 05/02/17 I83.90 Fracture of proximal phalanx of right little finger S62.616A Weight gain R63.5 Pain in the abdomen R10.9 LUQ abdominal pain R10.12 RUQ abdominal pain R10.11 Fatigue R53.83 Hair thinning L65.9 Medical History Medical History Arachnoid cyst Asthma with acute exacerbation (08/29/16) COVID-19 GERD (gastroesophageal reflux disease) Hepatitis C states cured Normal colonoscopy (~03/2018) Valvular heart disease unknown which valves Surgical History Surgical History cardiac valve repair x2 Colonoscopy - MAC D&C with Hysteroscopy (~1995) Endometrial Ablation rgt retrosigmoid suboccipital craniotomy resection (03/20/17) [facility] [place] Status post brain surgery (04/03/17) Trigger Finger release Tobacco Smoking/Tobacco Use Status: Former Tobacco Use Second hand exposure: No Alcohol Alcohol Intake: current Alcohol intake frequency: holidays/special occasions only Substance Use Substance use: Never Substance use type: does not use Vital Signs and Lab Results Vital Signs Most Recent Vital Signs in EMR: Most Recent Vital Signs Temp Pulse Resp BP Pulse Ox 37 C 70 19 123/74 94 05/14/23 09:45 05/14/23 09:45 05/14/23 09:45 05/14/23 09:45 05/14/23 09:45 Point of Care Results Point of Care Results: Finger Stick Blood Glucose 103 05/14/23 09:48 Lab Results Blood Type / Crossmatch: No Data to Display Complete Blood Count: No Data to Display Complete Metabolic Panel: No Data to Display Liver Function Panel: No Data to Display Coagulation Panel: No Data to Display Cardiac Panel: No Data to Display Arterial Blood Gas: No Data to Display Venous Blood Gas: No Data to Display Pancreas Panel: No Data to Display Thyroid Panel: No Data to Display Infectious Disease: No Data to Display Blood Cultures: No Data to Display Toxicology Panel: No Data to Display Imaging and Studies Imaging and Studies Study information below may be from another EMR and interpreted by another provider. Please see original notes in EMR for more complete details. Echocardiogram Summary: Summary: 1. Left ventricle: The cavity size was normal. Wall thickness was at the upper limits of normal. Systolic function was normal. The estimated ejection fraction was 55-60%. Wall motion was normal; there were no regional wall motion abnormalities. Diastolic parameters were normal. 2. Ventricular septum: Doppler showed no ventricular level shunt. 3. Mitral valve: There was mild regurgitation. 4. Right ventricle: The cavity size was normal. Wall thickness was normal. Systolic function was normal. 5. Atrial septum: A patch was present. Doppler showed no atrial level shunt. 6. Pulmonary arteries: Pulmonary systolic pressure was within the normal range, in the range of 30mm Hg to 35mm Hg. 12/20/16 Pulmonary Function Summary: Post test comments: EFFORT: Good patient cooperation and effort. BRONCHODILATOR: Albuterol inhaler 2 puffs via spacer BREATH SOUNDS: Exp.wheeze, but equal with fair aeration bilaterally with abatement of the wheeze following the bronchodilator. Patient noticed a slight improvement atter the bronchodilator. 11/28/16 Anesthesia Assessment and Plan Anesthesia History Personal History: No History of Anesthesia Complications Family History: No Family History of Anesthesia Complications Exercise Tolerance Exercise Tolerance: Metabolic Equivalents<4 Pertinent Negatives Pertinent Negatives: No Major Cardiovascular Symptoms or Complaints, No Major Pulmonary Symptoms or Complaints and No History of CVA/TIA Cardiac & Pulmonary Exam Cardiac Exam: Normal S1/S2 Heart Sounds Pulmonary Exam: Clear Bilateral Breath Sounds Implantable Cardiac Device Does patient have a Pacemaker or an ICD?: No Airway Exam Known Difficult Airway: No Mallampati Class: 2 Mouth Opening: Normal (> 3cm) Thyromental Distance: Less than 3 cm Neck Range of Motion: Full ROM Neck Circumference: Normal Teeth Condition: Normal Dentition ASA Classification ASA Score: ASA 3 Emergency Case?: No NPO Status NPO Status: NPO Clears >2 hours, Solids >8 hours Anesthesia Plan Resuscitation Status: Full Code Anesthesia Technique: MAC Anesthesia Airway Planned: Natural Airway Monitors Used: Standard Monitors
[2023-05-14 11:11] VITALS: BMI 34.9
[2023-05-14 11:50] VITALS: BP 122/84; PULSE 72; RESP 16; TEMP 36.5; O2SAT 96
--- NOTE | 2023-05-14 12:02 | W.ANESPOSTOP ---
Postoperative Evaluation Date, Time and Location Date Performed: 05/14/23 Time Performed: 12:03 Patient Location: Day Surgery Unit Vital Signs Most Recent Imported Vital Signs: Most Recent Vital Signs Temp Pulse Resp BP Pulse Ox 37 C 70 19 123/74 94 05/14/23 09:45 05/14/23 09:45 05/14/23 09:45 05/14/23 09:45 05/14/23 09:45 Pain Score Most Recent Pain Score: Most Recent Pain Score Pain Level 5 05/14/23 09:45 Assessment Mental Status: Awake (Alert & Oriented to Patient Baseline) Airway and Respiratory Function: Patent airway with normal (patient baseline) respiratory exam Cardiovascular Function: Hemodynamically Stable Hydration Status: Adequately Hydrated Nausea & Vomiting: No Nausea or Vomiting Pain: Pt. Denies Any Pain Peripheral Nerve Block: Patient did not receive a nerve block
[2023-05-14 12:27] VITALS: BP 117/80; PULSE 73; RESP 16; TEMP 36.7; O2SAT 97
== END 2023-05-14 13:00 | disposition home or self-care (01) ==
PROVIDERS: PCP Nurse Practitioner; Visit Provider Surgery
PROC: 0DJD8ZZ Inspection of Lower Intestinal Tract, Via Natural or Artificial Opening Endoscopic (ICD-10-PCS; CPT 45378; principal; 2023-05-14 10:30)
DX: Z12.11 Encounter for screening for malignant neoplasm of colon (principal); K57.30 Diverticulosis of large intestine without perforation or abscess without bleeding
CPT/HCPCS: 45378; J2405

== ENCOUNTER 2023-10-16 15:42 | Outpatient (CLI) | payer BC, SELFPAY ==
--- NOTE | 2023-10-16 15:38 | DI.RAD_ITS ---
Exam(s) XR SHOULDER LT COMPLETE 2+V EXAM: XR SHOULDER LT COMPLETE 2+V CLINICAL HISTORY: LEFT SHOULDER PAIN. TECHNIQUE: 2D digital imaging was performed. Three views. COMPARISON: CR XR shoulder LT complete 2+V from 12/16/2018 FINDINGS: BONES: No acute fracture is present. No bony destructive lesion is seen. Spurring undersurface of ac romion. Small degenerative cysts in the humeral head. JOINTS: No dislocation present glenohumeral joint space is maintained. SOFT TISSUE: Normal. IMPRESSION: Degenerative changes greatest at the undersurface of the acromion. DATA REPOSITORY: RADIATION DOSE DELIVERED:
== END 2023-10-16 15:43 | disposition home or self-care (01) ==
LOC: DIORS 15:42
PROVIDERS: PCP Nurse Practitioner; Visit Provider Student in an Organized Health Care Education/Training Program
DX: M25.512 Pain in left shoulder (principal)
CPT/HCPCS: 73030

== ENCOUNTER → 2023-10-30 00:42 | Outpatient (CLI) | payer BC, SELFPAY ==
--- NOTE | 2023-10-30 07:45 | DI.MRI_ITS ---
Exam(s) MR UPPER JOINT LT WO EXAM: MR UPPER JOINT LT WO CLINICAL HISTORY: RTC ARTHROPATHY, lt shoulder pain, m25.512 TECHNIQUE: Multiplanar multisequence MRI of the shoulder was performed. COMPARISON: CR XR SHOULDER LT COMPLETE 2+V from 10/16/2023 FINDINGS: There is motion artifact on some sequences. MARROW:There is no evidence of fracture, Hill-Sachs deformity, nor ominous osseous lesions. GLENOHUMERAL JOINT: There is moderate degenerative change in the glenohumeral joint, without evidence of a significant joint effusion. There is some generalized thinning of the articular cartilage. Sm all osteophyte on the inferior articular surface of the humeral head noted. There are no degenerativ e subarticular cysts on either side of the joint. There is an element of superior subluxation of the humeral head in the glenoid fossa, as seen on recent plain films with subsequent diminution of the s ubacromial space. ROTATOR CUFF MECHANISM: AC JOINT/ACROMIUM: Minimal if any significant degenerative changes in the AC joint. No undersurface osteophytes nor prominent ossific ridges. No evidence of enthesophytes in the coracoacromial acromia l ligament and the coracoclavicular ligament appears unremarkable.. There is no evidence of os acromiale. There is subtle evidence of prior rotator cuff surgery with what appears to be subtle fastener channe ls in the lateral aspect of the humeral head. Supraspinatus: There is significant attenuation of the supraspinatus tendon with nonvisualization of the tendon over most of the humeral head consistent with chronic tear. Difficult here in the diminis hed subacromial space to differentiate between retraction of the musculotendinous junction and severe attenuation of the supraspinatus tendon. There is mild atrophy of the muscle belly. Infraspinatus: Attenuation of the tendon. One focus of fluid signal on the sagittal images traverses the tendon thickness which is probably consistent with a small full-thickness tear within the attenu ated tendon. Teres Minor: Intact. No evidence of tear nor muscle atrophy. Subscapularis/anterior cuff: The multipennate insertional tendon fibers are attenuated, this most marya dent anterior to the greater tuberosity consistent with at least partial-thickness tearing. BICEPS TENDON: Significantly attenuated within the intertubercular groove and intra-articular aspect consistent with tearing. Can not trace the intra-articular aspect of the tendon to the anterosuperio r labrum. LABRUM: Difficult to assess because of motion artifact. There is surface irregularity of the superio r labrum consistent with surface tearing. There is also attenuation of the posterior superior labrum . The posterior inferior labrum inferior labrum appears intact. There is attenuation of the anterio r labrum. The inferior glenohumeral ligament appears intact IMPRESSION: 1. Examination quality somewhat limited by motion artifact. However, there is advanced attenuation w ith full-thickness tearing of the supraspinatus-rotator cuff tendon with upward subluxation of the hu meral head in the osseous glenoid fossa. There is also significant attenuation of the infraspinatus tendon with area of full-thickness tearing also evident within this structure. 2. Anteriorly there is partial tearing of the subscapularis tendon anterior to the greater tuberosity . There is also significant attenuation of the long head biceps tendon within the intertubercular gr oove and intra-articular compartment consistent with biceps tear. 3. Multilevel degenerative labral tearing also noted. No evidence of labral cyst. 4. There are moderate degenerative changes in the glenohumeral joint. No glenohumeral joint effusio n noted and no loose intra-articular bodies. There are minimal degenerative changes in the AC joint. DATA REPOSITORY:
== END ==
PROVIDERS: PCP Nurse Practitioner; Visit Provider Student in an Organized Health Care Education/Training Program
DX: M75.122 Complete rotator cuff tear or rupture of left shoulder, not specified as traumatic (principal)
CPT/HCPCS: 73221

== ENCOUNTER → 2024-03-05 01:45 | Outpatient (CLI) | payer BC, SELFPAY ==
--- NOTE | 2024-03-05 06:45 | DI.MAMMO_ITS ---
Exam(s) MAMMO SCREENING EXAM: MAMMO SCREENING CLINICAL HISTORY: screening,Z12.39. TECHNIQUE: Bilateral full field digital CC and MLO mammographic images were obtained with 3D tomosyn thesis and utilizing computer aided detection (CAD). COMPARISON: Prior mammograms were reviewed. FINDINGS: There has been no significant change in the appearance and distribution of the fibroglandular tissue. No new left breast findings. Small asymmetric density in the right breast seen lateral of center on the CC view is unchanged from prior mammograms. There are no new spiculated masses nor new malignant-appearing microcalcification groups in either br east. There is no significant architectural distortion nor skin thickening-retraction. IMPRESSION: No radiographic evidence of malignancy. Stable benign-appearing findings. BI-RADS Category 2 - Benign Findings Breast Density - Category B - Scattered areas of fibroglandular density Breast density Category C or D implies that the patient has dense breast tissue. Dense breast tissue can make it harder to find cancer on a mammogram. Dense breast tissue is also associated with an incr eased risk of breast cancer. This information about the result of the mammogram report was provided to the patient to raise their awareness. Use this report when you speak with the patient about their risks for breast cancer, which includes their family history. At that time, you may recommend additional screening tests (Ultrasoun d or MRI) as these tests may add significant information. A negative radiographic report should not delay biopsy if a dominant or clinically suspicious mass is present. Up to ten percent of cancers are not identified on mammography. A negative report may reinforce clinical impression. Adenosis and dense breasts may obscure an underlying neoplasm. False positive reports average 6 to 10%. Patient will receive a letter notifying them of these results.
[2024-03-05 08:21] LABS: Abs Immature Grans 0.02 10^3/uL (0.0-0.06); Absolute Basophil Count 0.08 10^3/uL (0.0-0.2); Absolute Eosinophil Count 0.19 10^3/uL (0.0-0.7); Absolute Lymphocyte Count 2.33 10^3/uL (1.2-3.4); Absolute Monocyte Count 0.71 10^3/uL (0.1-0.8); Absolute Neutrophil Count 5.95 10^3/uL (1.2-6.7); Basophils % 0.9 %; HCT 41.2 % (36.0-46.0); HGB 13.6 g/dL (11.2-15.7); Immature Grans % 0.2 %; Lymphocytes % 25.1 %; MCH 29.9 pg (27.0-33.0); MCV 91 fL (80-95); MPV 10.8 fL (8.0-11.0); Monocytes % 7.7 %; Neutrophils % 64.1 %; Platelet Count 281 10^3/uL (130-400); RBC 4.55 10^6/uL (3.93-5.22); RDW 13.3 % (11.7-14.6); RDW-SD 44.1 fL; WBC 9.28 10^3/uL (4.4-10.8)
[2024-03-05 08:41] LABS: ALT 22 U/L (14-59); AST 13 U/L (15-37); Albumin 3.9 g/dL (3.4-5.0); Alkaline Phosphatase 95 U/L (46-116); Anion Gap 9.5 mmol/L (3-11); BUN 20 mg/dL (7-18); Bilirubin, Total 0.99 mg/dL (0.2-1.0); CO2 26.5 mmol/L (21.0-32.0); CREATININE 0.8 mg/dL (0.55-1.02); Calcium 9.2 mg/dL (8.5-10.1); Calculated LDL 97 mg/dL (<100); Chloride 106 mmol/L (98-107); Cholesterol 186 mg/dL (<200); Estimated GFR 83.78 (mL/min/1.73m2); Glucose 109 mg/dL (74-106); HDL Cholesterol 76 mg/dL (40-60); Potassium 3.9 mmol/L (3.5-5.1); Sodium 142 mmol/L (136-145); Total Protein 7.7 g/dL (6.4-8.2); Triglyceride 69 mg/dL (<150)
[2024-03-05 08:54] LABS: Hemoglobin A1C 6.1 % (<5.7)
== END ==
PROVIDERS: PCP Nurse Practitioner; Visit Provider Nurse Practitioner
DX: Z12.31 Encounter for screening mammogram for malignant neoplasm of breast (principal); N60.81 Other benign mammary dysplasias of right breast; R73.09 Other abnormal glucose; J45.909 Unspecified asthma, uncomplicated; E03.9 Hypothyroidism, unspecified; E66.9 Obesity, unspecified
CPT/HCPCS: 36415; 77063; 77067; 80053; 80061; 83036; 85025

== ENCOUNTER 2025-03-13 00:17 | Outpatient (CLI) | payer BC, SELFPAY ==
--- NOTE | 2025-03-13 08:48 | DI.MAMMO_ITS ---
Exam(s) MAMMO SCREENING EXAM: MAMMO SCREENING CLINICAL HISTORY: screening,z12.39 TECHNIQUE: Mammograms were interpreted according to the usual protocol including computer analysis with CAD system, tomosynthesis and C-view imaging. COMPARISON: 2016 through 2023 FINDINGS: The breasts are composed of scattered fibroglandular densities, Breast Density category B. No suspicious masses or suspicious microcalcifications are seen. No skin thickening or abnormal axillary lymph nodes are seen. There has been no significant change from prior exams. IMPRESSION: BI-RADS Category 1, Negative mammogram Yearly screening mammography is recommended. Breast Density - Category B - There are scattered areas of fibroglandular density. Breast density Category C or D implies that the patient has dense breast tissue. Dense breast tissue can make it harder to find cancer on a mammogram. Dense breast tissue is also associated with an increased risk of breast cancer. This information about the result of the mammogram report was provided to the patient to raise their awareness. Use this report when you speak with the patient about their risks for breast cancer, which includes their family history. At that time, you may recommend additional screening tests (Ultrasound or MRI) as these tests may add significant information. A negative radiographic report should not delay biopsy if a dominant or clinically suspicious mass is present. Up to ten percent of cancers are not identified on mammography. A negative report may reinforce clinical impression. Adenosis and dense breasts may obscure an underlying neoplasm. False positive reports average 6 to 10%. Patient will receive a letter notifying them of these results.
== END 2025-03-13 00:37 ==
PROVIDERS: Visit Provider Nurse Practitioner
DX: Z12.31 Encounter for screening mammogram for malignant neoplasm of breast (principal); R92.323 Mammographic fibroglandular density, bilateral breasts
CPT/HCPCS: 77063; 77067

== ENCOUNTER 2025-03-13 00:36 | Outpatient (CLI) | payer BC, SELFPAY ==
[2025-03-13 09:26] LABS: Hemoglobin A1C 5.4 % (<5.7)
[2025-03-13 10:05] LABS: ALT 22 U/L (14-59); AST 13 U/L (15-37); Albumin 3.6 g/dL (3.4-5.0); Alkaline Phosphatase 69 U/L (46-116); Anion Gap 7.4 mmol/L (3-11); BUN 18 mg/dL (7-18); Bilirubin, Total 0.9 mg/dL (0.2-1.0); CO2 28.6 mmol/L (21.0-32.0); Calcium 9.2 mg/dL (8.5-10.1); Calculated LDL 79 mg/dL (<100); Chloride 105 mmol/L (98-107); Cholesterol 158 mg/dL (<200); Estimated GFR 97.72 (mL/min/1.73m2); Glucose 93 mg/dL (74-106); HDL Cholesterol 72 mg/dL (>or=50); Potassium 4.3 mmol/L (3.5-5.1); Sodium 141 mmol/L (136-145); TSH (W/Ref FT4) 1.04 uIU/mL (0.36-3.74); Total Protein 7.0 g/dL (6.4-8.2); Triglyceride 38 mg/dL (<150)
== END 2025-03-13 00:37 | disposition home or self-care (01) ==
LOC: LBO 00:47
PROVIDERS: PCP Nurse Practitioner; Visit Provider Nurse Practitioner
DX: Z13.220 Encounter for screening for lipoid disorders (principal); E03.9 Hypothyroidism, unspecified; E66.9 Obesity, unspecified; R73.09 Other abnormal glucose
CPT/HCPCS: 36415; 80053; 80061; 83036; 84443

== ENCOUNTER 2025-05-12 10:38 | Emergency (ER) | payer OTHER, SELFPAY ==
[2025-05-12 10:42] VITALS: BP 159/83; PULSE 79; RESP 16; TEMP 36.8; O2SAT 97
--- NOTE | 2025-05-12 10:45 | DI.CT_ITS ---
Exam(s) CT ABDOMEN PELVIS W EXAM: CT ABDOMEN PELVIS W CLINICAL HISTORY: Left lower quadrant pain. TECHNIQUE: Imaging Protocol: Axial computed tomography images with coronal and sagittal reformatted images were created and reviewed CONTRAST MATERIAL: Intravenous: Omnipaque 350 Contrast volume:75 ml Oral: no COMPARISON: No exams were available for comparison FINDINGS: ABDOMEN and PELVIS: Lung Bases: No acute findings. Liver: Normal density. No suspicious mass. Gallbladder and biliary tract: No radiodense calculus. No wall thickening or pericholecystic fluid. No biliary dilation. Pancreas: Normal density. No abnormal calcifications or inflammatory process. No evidence of mass. Spleen: Normal. Kidneys: Normal size, contour and axis. There is mild left hydronephrosis secondary to a 4 x 2 millimeter stone at the ureterovesical junction. There are few tiny stones at the lower pole of the right kidney. No suspicious masses seen. Adrenal glands: No masses seen. Vasculature: Abdominal aorta non-dilated. Soft tissues: Small fat containing umbilical hernia. Bladder: No gross wall thickening. No calculi.No focal mass. Bowel: No obstruction. No bowel wall thickening. Appendix normal. Peritoneal cavity: No ascites. No focal collection. No mesenteric inflammatory response. No free air. Bones: Unremarkable for age. Reproductive organs: Unremarkable. Lymph nodes: No pathologically enlarged lymph nodes. IMPRESSION:: Mild left hydronephrosis secondary to a 2 x 4 millimeter stone at the ureterovesical junction. RADIATION DOSE DELIVERED: 1,235.49mGy.cm Total DLP DATA REPOSITORY: All CT scans at this facility are submitted to the National Radiology Data Registry (NRDR) Dose Index Registry (DIR) with the [employer] ([employer]). RADIATION OPTIMIZATION: All CT scans at this facility use at least one of these dose optimization techniques: automated exposure control; mA and/or kV adjustment per patient size (includes targeted exams where dose is matched to clinical indication); or iterative reconstruction.
--- NOTE | 2025-05-12 10:57 | W.ED.GENAD ---
Discharge Plan Disposition Patient Disposition: Home Discharge Details Clinical Impression: Ureterolithiasis, Acute left lower quadrant pain, Hematuria Primary Care Provider: Rosa Friedman ED Provider: Daniel Robledo Home Meds and New Rx's Prescriptions: Continued famotidine [Pepcid] 20 mg tablet 20 mg PO DAILY PRN albuterol sulfate 90 mcg/actuation HFA aerosol inhaler 2 puff Inhalation q 4 hr prn Qty: 8.5 12RF meloxicam 15 mg tablet See Rx Instructions .ROUTE .COMPLEX Qty: 90 3RF Dose Instruction: TAKE 1 TABLET BY MOUTH DAILY Rx Instructions: TAKE 1 TABLET BY MOUTH DAILY omeprazole 40 mg capsule,delayed release(DR/EC) See Rx Instructions .ROUTE .COMPLEX Qty: 90 3RF Dose Instruction: TAKE ONE CAPSULE BY MOUTH EVERY DAY. Rx Instructions: TAKE ONE CAPSULE BY MOUTH EVERY DAY. semaglutide (weight loss) 2.4 mg/0.75 mL pen injector 2.4 mg subcut QWEEK Qty: 3 6RF naproxen sodium [Aleve] 220 MG tablet 440 mg PO Q12H PRN Rx Instructions: 03/24/15 pt takes b/c of R leg pain, RH cetirizine [Zyrtec] 10 MG tablet 10 mg PO DAILY acetaminophen 500 MG tablet 1,000 mg PO TID PRN fluticasone propionate 50 mcg/actuation spray,suspension 2 spray intranasal DAILY PRN Rx Instructions: administer into each nostril Discharge Instructions Instructions: Kidney Stone, Adult ED Additional Instructions: You were seen in the emergency department for your abdominal pain. You are found to have a small 4 x 2 mm left-sided kidney stone which will likely pass on its own. As we discussed if you develop fevers worsening pain nausea or vomiting or if you have any other concerns please return to the emergency department. For your pain please take medications as follows: 1. Take acetaminophen (Tylenol), 1,000 mg (two 500 mg tabs) every 6 hours [2. Take ibuprofen (Advil), 400 mg every 6 hours.] Your bilirubin level was slightly elevated. This is a compound made by the liver. Please follow-up with your primary care provider and return if you develop worsening abdominal pain. HPI General Date/Time Provider Initiated Documentation: 05/12/25 10:57. HPI Narrative: MDM This is an uncomfortable appearing normothermic and not tachycardic 62-year-old female history of diverticulitis with left lower quadrant pain concerning for recurrent diverticulitis for which patient will undergo CT abdomen pelvis with IV contrast following labs. No pain out of proportion to suggest necrotizing soft tissue infection. No rash to abdomen to suggest zoster. In the presence of abdominal tenderness I am not suspicious for myocardial injury so I did not order an ECG will check a troponin. No epigastric tenderness to suggest pancreatitis I did not send a lipase. I considered UTI however in the absence of dysuria and frequency I did not feel that the patient required a urinalysis. Patient has no rash to her abdomen to suggest zoster. She does have a history of ureterolithiasis but given her abdominal tenderness and loose stool my suspicion for symptomatic ureterolithiasis was low. Not recently to suggest splenic arterial aneurysm. No pulsatile masses to suggest AAA. No loss of bowel or bladder control to suggest spinal epidural abscess. Will reassess following ketorolac ondansetron and IV fluids. No recent antibiotics no fevers to suggest increased risk for C. difficile infection. Given no cough or shortness of breath and not concern for referred pain from pneumonia. 1:38 PM Patient was found to have a small left UVJ stone measuring 2 x 4 mm. CBC shows no leukocytosis. No anemia. No thrombocytopenia. Comprehensive metabolic panel lacks ANNY. Mild new hyperbilirubinemia. No significant LFT abnormalities. Mild anion gap. Very mild hypokalemia. 4:20 PM Urinalysis nitrite negative not consistent with UTI. Patient felt improved. We discussed that she should return if her pain worsens or if she did not eat or drink as result of nausea vomiting or if she had any other concerns. I asked ELISABETH Queen to have the patient see by urology for close outpatient follow-up. Patient understood her return indications and was discharged with an empric trial of expectant outpatient managment. HPI This is a patient with a history of diverticulitis presenting with left-sided abdominal pain. The patient reports experiencing left-sided pain for the past 2 nights, accompanied by a sensation of bloating. She has not had similar symptoms before. She reports no nausea or vomiting but mentions a decrease in appetite due to the bloating. Her diet has been limited to tea this morning and chicken soup with one piece of bread yesterday. She also reports frequent burping over the past week. She has not taken any recent antibiotics and has no history of kidney stones. She reports no burning sensation during urination, chest pain, or difficulty breathing. She has not undergone any abdominal surgeries in the past. Exam General: Well-appearing in no acute distress speaking in complete sentences. Head: Normocephalic, atraumatic. Eye:Extraocular eye movements intact. No conjunctival injection. No scleral icterus. Ear, nose, mouth, throat: Grossly normal inspection. Normal voice, handling secretions normally. Neck: Trachea midline. Cardiovascular: Well-perfused distal extremities. Regular rate and rhythm. Respiratory: Nonlabored respiration. Clear lungs bilaterally. Gastrointestinal: Nondistended abdomen. Soft. Left lower quadrant tenderness. No rebound. No guarding. Musculoskeletal: No edema. Moving all 4 extremities spontaneously. Skin: Normal for age and race, grossly normal temperature and turgor. No acute rash. Neurologic: Alert and appropriate, no apparent acute deficits. Psychiatric: Mood and manner are appropriate. Grooming and personal hygiene are appropriate. Related Data Home Medications ?Medication ?Instructions ?Recorded ?Confirmed naproxen sodium 220 mg tablet 440 mg PO Q12H PRN 09/18/16 05/12/25 (Aleve) cetirizine 10 mg tablet (Zyrtec) 10 mg PO DAILY 10/23/16 05/12/25 acetaminophen 500 mg tablet 1,000 mg PO TID PRN 07/03/17 05/12/25 famotidine 20 mg tablet (Pepcid) 20 mg PO DAILY PRN 05/02/23 05/12/25 albuterol sulfate 90 mcg/actuation 2 puff inhalation q 4 hr prn #8.5 11/24/24 05/12/25 aerosol inhaler grams meloxicam 15 mg tablet See Rx Instructions .Route 11/24/24 05/12/25 .COMPLEX #90 tabs omeprazole 40 mg capsule,delayed See Rx Instructions .Route 11/24/24 05/12/25 release .COMPLEX #90 caps semaglutide (weight loss) 2.4 2.4 mg (0.75 mL) subcut QWEEK #3 mL 11/24/24 05/12/25 mg/0.75 mL subcutaneous pen injector fluticasone propionate 50 2 spray intranasal DAILY PRN 05/12/25 05/12/25 mcg/actuation nasal spray,suspension Previous Rx's ?Medication ?Instructions ?Recorded albuterol sulfate 90 mcg/actuation 2 puff inhalation q 4 hr prn #8.5 11/24/24 aerosol inhaler grams meloxicam 15 mg tablet See Rx Instructions .Route 11/24/24 .COMPLEX #90 tabs omeprazole 40 mg capsule,delayed See Rx Instructions .Route 11/24/24 release .COMPLEX #90 caps semaglutide (weight loss) 2.4 2.4 mg (0.75 mL) subcut QWEEK #3 mL 11/24/24 mg/0.75 mL subcutaneous pen injector Allergies Allergy/AdvReac Type Severity Reaction Status Date / Time Bleach (Sodium Hypochlorite) Allergy Severe takes her Verified 05/12/25 10:46 breath away, asthma attack latex Allergy Severe 2 degree Verified 05/12/25 10:46 russo raspberry Allergy Severe hives Verified 05/12/25 10:46 aluminum Allergy Unknown Facial Verified 05/12/25 10:46 Swelling and Blisters lactose AdvReac Severe diarrhea,bl Verified 05/12/25 10:46 oating,vomi ting pork derived (porcine) AdvReac Severe severe Verified 05/12/25 10:46 abdominal pain codeine AdvReac Vomiting Verified 05/12/25 10:46 General Stated Complaint: Abd Prob SHAR: 3 Course Vital Signs Vital signs: Vital Signs Temperature 36.8 C 05/12/25 10:42 Pulse 79 05/12/25 10:42 Respiratory Rate 16 05/12/25 10:42 Blood Pressure 159/83 H 05/12/25 10:42 Pulse Oximetry 97 05/12/25 10:42 Temperature 36.8 C 05/12/25 10:42 Pulse 79 05/12/25 10:42 Respiratory Rate 16 05/12/25 10:42 Blood Pressure 159/83 H 05/12/25 10:42 Pulse Oximetry 97 05/12/25 10:42 Oxygen Delivery Method Room Air 05/12/25 10:42 Oxygen Flow Rate 0 05/12/25 10:42 Pain Level 10 05/12/25 10:42 PFSH All Active Problems (Updated 05/12/25 @ 14:50 by Daniel Robledo MD) Hematuria (Acute) Acute left lower quadrant pain (Acute) Ureterolithiasis (Acute) Obesity (BMI 30.0-34.9) (Acute) Rotator cuff tear arthropathy of left shoulder (Acute) Screen for colon cancer (Acute) Epidermoid cyst of brain (Acute 10/08/17) Hemangioma of skin and subcutaneous tissue (Acute 08/29/16) Hepatitis C carrier (Acute 08/29/16) High risk HPV infection (Acute 09/21/16) Hypothyroidism (Acute 08/29/16) Neoplasm of uncertain behavior of skin (Acute 08/29/16) Varicose vein of leg (Acute 05/02/17) Fracture of proximal phalanx of right little finger (Acute) Weight gain (Acute) Pain in the abdomen (Acute) LUQ abdominal pain (Acute) RUQ abdominal pain (Acute) Fatigue (Acute) Hair thinning (Acute) Medical History (Updated 05/12/25 @ 14:50 by Daniel Robledo MD) GERD (gastroesophageal reflux disease) COVID-19 Asthma with acute exacerbation (08/29/16) Normal colonoscopy (~03/2018) Hepatitis C states cured Valvular heart disease unknown which valves Arachnoid cyst Surgical History (Updated 05/16/23 @ 09:31 by Fallon Vogel) Status post brain surgery (04/03/17) rgt retrosigmoid suboccipital craniotomy resection (03/20/17[place] [facility] [place] x2 Trigger Finger release Endometrial Ablation D&C with Hysteroscopy (~1995) Colonoscopy - MAC (~04/2023) Family History Father Heart disease Hyperlipidemia Myocardial infarction Brother Diabetes Grandmother Personal history of malignant neoplasm ovarian Maternal Uncle Personal history of malignant neoplasm colon Maternal Aunt Stroke Social History (Updated 02/06/23 @ 09:03 by Kady Suarez LPN) Smoking/Tobacco Use Status: Former Tobacco Use Tobacco: How many years used: 20 Second Hand Exposure: No Smoking risk assessment performed?: Yes Alcohol Intake: current Alcohol Intake frequency: holidays/special occasions only Drug use: Never Substance use type: does not use Household members: significant other and children Housing: house Number of Children: 4 number of grandchildren: 1 Communication Needs: None Education Level: college Details: Associates Degree Do you need help understanding health information?: Never current occupation: Housing Navigator for homeless Pets and animals: No Current gender identity: female What is your relationship status?: living with partner How often do you talk on the phone with friends or family?: three or more times per week How often do you get together with friends or relatives?: once per week Do you belong to any clubs or organized social groups?: yes Panel score (0-1 are the most socially isolated patients): 3 What type of physical activity do you participate in: walking and other Details: treadmill Duration: < 15 minutes/day Special vikram needs: No Seatbelt use: always Helmet use: Yes Helmet use: always Drive intox or ride w/intox package car driver: No Water heater temp set <120 deg: Yes Working smoke detector in home: Yes Fire extinguisher in home: No Carbon monox detector in home: Yes Do you feel safe at home: Yes Do you feel safe in your relationship?: Yes
[2025-05-12 11:16] VITALS: BP 159/83; PULSE 79; RESP 16; TEMP 36.8; O2SAT 97
[2025-05-12] MEDS: Ondansetron 4 MG/2 ML VIAL IVP (11:31)
[2025-05-12] MEDS: Ketorolac 15 MG/ML VIAL IVP (11:31)
[2025-05-12] MEDS: Normal Saline 500 ML IV (11:32)
[2025-05-12 11:34] LABS: Abs Immature Grans 0.03 10^3/uL (0.0-0.06); HCT 40.8 % (36.0-46.0); HGB 13.6 g/dL (11.2-15.7); Immature Grans % 0.2 %; MCH 30.3 pg (27.0-33.0); MCHC 33.3 % (32.0-36.0); MCV 91 fL (80-95); MPV 10.4 fL (8.0-11.0); Platelet Count 266 10^3/uL (130-400); RBC 4.49 10^6/uL (3.93-5.22); RDW 13.3 % (11.7-14.6); RDW-SD 44.2 fL; WBC 12.06 10^3/uL (4.4-10.8)
[2025-05-12 12:28] LABS: ALT 18 U/L (14-59); AST 14 U/L (15-37); Albumin 3.8 g/dL (3.4-5.0); Alkaline Phosphatase 66 U/L (46-116); Anion Gap 11.9 mmol/L (3-11); BUN 16 mg/dL (7-18); Bilirubin, Total 2.3 mg/dL (0.2-1.0); CO2 26.1 mmol/L (21.0-32.0); Calcium 9.2 mg/dL (8.5-10.1); Chloride 107 mmol/L (98-107); Estimated GFR 97.72 (mL/min/1.73m2); Glucose 109 mg/dL (74-106); Potassium 3.4 mmol/L (3.5-5.1); Sodium 145 mmol/L (136-145); Total Protein 7.2 g/dL (6.4-8.2)
[2025-05-12] MEDS: Omnipaque 350 MG/ML 500 ML BTL-Imaging package IJ (12:39)
[2025-05-12] MEDS: Normal Saline - Diluent 50 ML VIAL IJ (12:39)
[2025-05-12] MEDS: Normal Saline Flush 10 ML SYR IVP (12:39)
[2025-05-12 14:27] LABS: Glucose Negative (Negative)
[2025-05-12 14:54] VITALS: BP 104/88; PULSE 66; RESP 18; TEMP 37; O2SAT 97
[2025-05-12 14:54] LABS: C & S Indicated? No; RBC >50 HPF (0-2); WBC 0-2 HPF (0-5)
[2025-05-12] MEDS: Acetaminophen 500 MG TAB 1000 MG PO (15:00)
[2025-05-12] MEDS: Ondansetron O.D.T. 4 MG TABEF, 3 TABS/BTL PO (15:01)
[2025-05-12] MEDS: MORPHine IR 15 MG TAB, 4 TABS/BTL PO (15:01)
== END 2025-05-12 15:11 | disposition home or self-care (01) ==
PROVIDERS: Emergency Provider Emergency Medicine; PCP Nurse Practitioner
DX: N20.1 Calculus of ureter (principal); R10.32 Left lower quadrant pain; R31.9 Hematuria, unspecified; Z87.19 Personal history of other diseases of the digestive system; R14.0 Abdominal distension (gaseous)
CPT/HCPCS: 36415; 80053; 96361; 96374; 96375; 99285; 74177; 81003; 81015; 85025; 99284; J1885; J2405